=== PATIENT | female | born 1965 | race African-American/Black ===

== ENCOUNTER 2020-11-16 10:34 | Emergency (ER) | payer MEDICAID ==
[~2020-11-16] VITALS: Ht 170.2 cm; Wt 49.9 kg
[2020-11-16 10:55] VITALS: BP 116/65
[2020-11-16 11:31] LABS: Basophils # (auto) 0 10 ^3/uL (0-0.2); Eosinophils # (auto) 0 10 ^3/uL (0-0.8); Eosinophils % (auto) 0.1 % (0.0-7.0)
[2020-11-16 11:33] LABS: Basophils % (auto) 0.2 % (0.0-2.0); Hematocrit 24.7 % (36.0-46.0); Hemoglobin 7.6 g/dL (12.2-16.2); Lymphocytes # (auto) 0.3 10 ^3/uL (0.4-5.4); Lymphocytes % (auto) 2.5 % (10.0-50.0); Mean Corpuscular Hemoglobin 23.7 pg (28.0-32.0); Mean Corpuscular Volume 76.6 fL (80.0-100.0); Monocytes # (auto) 0.4 10 ^3/uL (0-1.3); Monocytes % (auto) 3.7 % (0.0-12.0); Neutrophils # (auto) 9.5 10 ^3/uL (1.6-8.6); Neutrophils % (auto) 93.5 % (37.0-80.0); Red Blood Cells 3.22 10^6/uL (4.0-5.20); Red Cell Distribution Width 16.6 % (11.8-14.3); White Blood Cell 10.1 10^3/uL (4.4-10.8)
[2020-11-16 12:00] LABS: Albumin 2.7 g/dL (3.4-5.0); Calcium 9.2 mg/dL (8.5-10.1); Potassium 3.3 mmol/L (3.5-5.1)
[2020-11-16 12:04] LABS: BUN/Creatinine Ratio 13.9; Bilirubin, Total 0.3 mg/dL (0.2-1.0); Total Protein 8.4 g/dL (6.4-8.2)
== END 2020-11-16 18:53 | disposition home or self-care (01) ==
LOC: ER 10:34 → EDBD 10:34 → ER 18:53
DX: K52.9 Noninfective gastroenteritis and colitis, unspecified (principal); Z85.818 Personal history of malignant neoplasm of other sites of lip, oral cavity, and pharynx
CPT/HCPCS: 36415; 74176; 80053; 83605; 83690; 85025; 87040; 93005

== ENCOUNTER 2020-11-28 20:08 | Emergency (ER) | payer MEDICAID ==
[~2020-11-28] VITALS: Ht 175.3 cm; Wt 49.9 kg
[2020-11-28 21:24] LABS: Basophils # (auto) 0 10 ^3/uL (0-0.2); Eosinophils # (auto) 0 10 ^3/uL (0-0.8); Lymphocytes # (auto) 0.3 10 ^3/uL (0.4-5.4); White Blood Cell 6.4 10^3/uL (4.4-10.8)
[2020-11-28 21:31] LABS: Basophils % (auto) 0.5 % (0.0-2.0); Eosinophils % (auto) 0.2 % (0.0-7.0); Hematocrit 22.4 % (36.0-46.0); Hemoglobin 7.1 g/dL (12.2-16.2); Lymphocytes % (auto) 5.3 % (10.0-50.0); Mean Corpuscular Hemoglobin 23.6 pg (28.0-32.0); Mean Corpuscular Hgb Conc. 31.5 g/dL (32.0-36.0); Monocytes # (auto) 0.6 10 ^3/uL (0-1.3); Monocytes % (auto) 9.5 % (0.0-12.0); Neutrophils # (auto) 5.4 10 ^3/uL (1.6-8.6); Neutrophils % (auto) 84.5 % (37.0-80.0); Red Blood Cells 2.99 10^6/uL (4.0-5.20); Red Cell Distribution Width 16.2 % (11.8-14.3)
[2020-11-28 21:32] LABS: Albumin 2.1 g/dL (3.4-5.0); Calcium 8.1 mg/dL (8.5-10.1)
[2020-11-28 21:36] LABS: BUN/Creatinine Ratio 18.5; Bilirubin, Total 0.3 mg/dL (0.2-1.0); Total Protein 7.2 g/dL (6.4-8.2)
[2020-11-28] MEDS ORDERED: IOHEXOL 300 MG/ML 100ML BOTTLE IJ ONE (22:20)
[2020-11-28 22:48] LABS: INR 1.12 (0.9-1.15)
[2020-11-28] MEDS ORDERED: SODIUM CHLORIDE 0.9% 1,000 ML IV ONE (23:15)
[2020-11-29 04:10] VITALS: BP 106/52
[2020-11-29 04:15] VITALS: BP 112/66
[2020-11-29 05:00] VITALS: BP 120/68
[2020-11-29 06:00] VITALS: BP 125/69
[2020-11-29 11:30] VITALS: BP 105/55
== END 2020-11-29 12:02 | disposition short-term general hospital (02) ==
LOC: ER 20:08 → EDBD 20:08 → ER 11-29 12:02
DX: C14.0 Malignant neoplasm of pharynx, unspecified (principal); D64.9 Anemia, unspecified; Z20.822 Contact with and (suspected) exposure to COVID-19
CPT/HCPCS: 36415; 36430; 70491; 80053; 85025; 85610; 86850; 86900; 86901; 86920; 87426; 96360; 96361; 99285; J7030; P9016; Q9967

== ENCOUNTER 2020-12-16 19:19 | Emergency (ER) | payer MEDICAID ==
[~2020-12-16] VITALS: Ht 170.2 cm; Wt 86.2 kg
[2020-12-16] MEDS ORDERED: SODIUM CHLORIDE 0.9% 500 ML IV ONE (20:00)
[2020-12-16 21:12] LABS: Albumin 2.6 g/dL (3.4-5.0); Calcium 8.7 mg/dL (8.5-10.1); Magnesium 2.4 mg/dL (1.6-2.6); Potassium 4.2 mmol/L (3.5-5.1)
[2020-12-16 21:17] LABS: BUN/Creatinine Ratio 28.8; Bilirubin, Total 0.3 mg/dL (0.2-1.0); Total Protein 7.8 g/dL (6.4-8.2)
[2020-12-16 21:33] LABS: Basophils # (auto) 0 10 ^3/uL (0-0.2); Basophils % (auto) 0.5 % (0.0-2.0); Eosinophils # (auto) 0.1 10 ^3/uL (0-0.8); Eosinophils % (auto) 1.4 % (0.0-7.0); Hematocrit 34.8 % (36.0-46.0); Hemoglobin 11.2 g/dL (12.2-16.2); Lymphocytes # (auto) 0.4 10 ^3/uL (0.4-5.4); Mean Corpuscular Hgb Conc. 32.2 g/dL (32.0-36.0); Mean Corpuscular Volume 83.7 fL (80.0-100.0); Monocytes # (auto) 0.5 10 ^3/uL (0-1.3); Neutrophils # (auto) 6.6 10 ^3/uL (1.6-8.6); Neutrophils % (auto) 86.1 % (37.0-80.0); Red Blood Cells 4.15 10^6/uL (4.0-5.20); Red Cell Distribution Width 18.9 % (11.8-14.3); White Blood Cell 7.6 10^3/uL (4.4-10.8)
[2020-12-16 21:37] LABS: INR 1.02 (0.9-1.15); Partial Thromboplastin Time 28.1 sec (23.6-33.0)
[2020-12-17] MEDS ORDERED: COCAINE HCL 4% TOP SOL 4ML TOP ONE ×3 (00:45→01:00)
[2020-12-17 09:00] VITALS: BP 111/68
== END 2020-12-17 09:53 | disposition short-term general hospital (02) ==
LOC: EDBD 19:19 → ER 19:20
DX: J95.01 Hemorrhage from tracheostomy stoma (principal); R94.31 Abnormal electrocardiogram [ECG] [EKG]; Z20.822 Contact with and (suspected) exposure to COVID-19
CPT/HCPCS: 36415; 70498; 71045; 80053; 83735; 84484; 85025; 85379; 85610; 85730; 87426; 93005; 96360; 96361; 99285; J7040

== ENCOUNTER 2021-07-14 01:21 | Emergency (ER) | payer MEDICAID ==
[~2021-07-14] VITALS: Ht 170.2 cm; Wt 40.8 kg
[2021-07-14] MEDS ORDERED: SODIUM CHLORIDE 0.9% 1,000 ML IV ONE (02:00)
[2021-07-14] MEDS ORDERED: TRANEXAMIC ACID 1,000 MG in SODIUM CHL 0.9% 100 ML IV ONE ×2 (02:00→05:45)
[2021-07-14 02:42] LABS: Basophils # (auto) 0.1 10 ^3/uL (0-0.2); Eosinophils # (auto) 0.1 10 ^3/uL (0-0.8); Hematocrit 12.4 % (36.0-46.0); Lymphocytes # (auto) 0.9 10 ^3/uL (0.4-5.4); Mean Corpuscular Volume 85.3 fL (80.0-100.0); Monocytes # (auto) 1.1 10 ^3/uL (0-1.3); Nucleated Red Blood Cells % 0.2 %; Red Blood Cells 1.45 10^6/uL (4.0-5.20)
[2021-07-14 02:43] LABS: Basophils % (auto) 0.3 % (0.0-2.0); Eosinophils % (auto) 0.7 % (0.0-7.0); Mean Corpuscular Hemoglobin 27.5 pg (28.0-32.0); Mean Corpuscular Hgb Conc. 32.3 g/dL (32.0-36.0); Neutrophils # (auto) 15.7 10 ^3/uL (1.6-8.6); Red Cell Distribution Width 17.3 % (11.8-14.3); White Blood Cell 17.8 10^3/uL (4.4-10.8)
[2021-07-14 02:57] LABS: Albumin 1.8 g/dL (3.4-5.0); BUN/Creatinine Ratio 21.7; Calcium 9.2 mg/dL (8.5-10.1); Magnesium 2.8 mg/dL (1.6-2.6); Potassium 4.9 mmol/L (3.5-5.1)
[2021-07-14 03:00] LABS: Bilirubin, Total 0.2 mg/dL (0.2-1.0); Total Protein 6.2 g/dL (6.4-8.2)
[2021-07-14 03:09] LABS: INR 1.09 (0.9-1.15); Partial Thromboplastin Time 27.9 sec (23.6-33.0)
[2021-07-14 04:52] VITALS: BP 87/48
[2021-07-14] MEDS ORDERED: TRANEXAMIC ACID 10 ML ONE (05:46)
[2021-07-14 06:15] VITALS: BP 74/49
[2021-07-14 06:44] VITALS: BP 95/57
[2021-07-14 07:20] VITALS: BP_SYST 63; BP_SYST 93; BP_DIAS 62
== END 2021-07-14 07:55 | disposition short-term general hospital (02) ==
LOC: EDBD 01:21 → ER 01:26
DX: C14.0 Malignant neoplasm of pharynx, unspecified (principal); D64.9 Anemia, unspecified; I95.9 Hypotension, unspecified
CPT/HCPCS: 36415; 36430; 71045; 80053; 83735; 85025; 85610; 85730; 86850; 86900; 86901; 86920; 96365; 99291; J7030; P9016

== ENCOUNTER → 2021-08-23 | Emergency (ER) | payer MEDICARE, MEDICAID ==
[~2021-08-23] VITALS: Ht 152.4 cm; Wt 45.4 kg
[~2021-08-23] MED LIST: GLUCAGON HYDROCHLORIDE (RDNA) 1 MG VIAL IM ONE
[2021-08-23 22:17] VITALS: BP 106/67
== END | disposition short-term general hospital (02) ==
LOC: EDUNIT# 16:16 → EDSEX 16:17 → ER 16:17 → EDBD 16:17
DX: T17.408A Unspecified foreign body in trachea causing other injury, initial encounter (principal); X58.XXXA Exposure to other specified factors, initial encounter; Y93.89 Activity, other specified; Y92.89 Other specified places as the place of occurrence of the external cause; Y99.8 Other external cause status
CPT/HCPCS: 70490; 71250; 96372; 99285; J1610